=== PATIENT | female | born 1995 | race African-American/Black ===

== ENCOUNTER 2018-08-26 04:36 | Emergency (ER) | payer SELFPAY ==
[~2018-08-26] VITALS: Ht 172.7 cm; Wt 54.9 kg
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
--- NOTE | 2018-08-26 04:56 | NUR ---
PT'S BROTHER CAME IN AND IS AT THE BEDSIDE.
--- NOTE | 2018-08-26 05:10 | NUR ---
PT WANTED TO USE THE BATHROOM. PT IS NOT ABLE TO WALK AT THIS TIME. PT WAS PLACED ON A BEDPAN.
--- NOTE | 2018-08-26 05:29 | NUR ---
PT'S BROTHER IS AT THE BEDSIDE SPEAKING TO THE PT.
--- NOTE | 2018-08-26 06:06 | NUR ---
PT APPEARS TO BE CALM AND SPEAKING TO HER BROTHER, WHO IS AT THE BEDSIDE.
--- NOTE | 2018-08-26 06:39 | NUR ---
PT IS TALKING TO HER BROTHER. PT IS ABLE TO STAND, BUT IS STILL UNSTEADY WHEN WALKING. WILL CONTINUE TO MONITOR THE PT.
[2018-08-26 07:12] VITALS: BP 116/67
--- NOTE | 2018-08-26 07:13 | NUR ---
PT AMBULATED TO THE NURSE'S STATION WITH A SLOW STEADY GAIT. PT'S BROTHER IS WITH THE PT. Patient discharged to home in stable condition. Written and verbal after care instructions given. Patient verbalizes understanding of instruction. PT WILL TAKE THE BUS HOME. VSS.
== END 2018-08-26 07:14 | disposition home or self-care (01) ==
LOC: EDBD 04:38 → ER 04:38
DX: F10.129 Alcohol abuse with intoxication, unspecified (principal); Y90.9 Presence of alcohol in blood, level not specified

== ENCOUNTER 2018-08-26 10:41 | Emergency (ER) | payer SELFPAY ==
[~2018-08-26] VITALS: Ht 170.2 cm; Wt 63.5 kg
--- NOTE | 2018-08-26 10:53 | NUR ---
Pt was seen and evaluated by Dr. Barakat. She denies any suicidal or homicidal ideation. Pt eloped from the facility.
== END 2018-08-26 10:57 | disposition home or self-care (01) ==
LOC: ER 10:43
DX: E86.0 Dehydration (principal)